=== PATIENT | female | born 1950 | race Asian ===

== ENCOUNTER → 2019-05-13 10:02 | Outpatient (CLI) | payer MEDICARE, BC, OTHER, SELFPAY ==
--- NOTE | 2019-05-13 10:09 | DI.CT.S_ITS ---
PROCEDURE: CT LUMBAR SPINE WO CON INDICATIONS: Spinal stenosis, lumbar region TECHNIQUE: Noncontrast 3 mm thick sections acquired from the T12 level to the sacrum. Sagittal and coronal reformats were constructed. For radiation dose reduction, the following was used: automated exposure control. COMPARISON: None. FINDINGS: Image quality: Excellent. Bones: There is grade I L4 on L5 anterolisthesis. Spinal alignment is otherwise normal. No compression deformities. Intervertebral disc heights are preserved. No neuroforaminal narrowing of the lumbar spine. Anterolisthesis and facet and ligamentum flavum hypertrophy at L4-5 results in severe canal stenosis where the AP diameter of the canal measures approximately 7 mm. The canal is otherwise normal caliber. Soft tissues: No retroperitoneal masses or hematomas. Visualized aorta is normal in caliber. There are scattered atheromatous calcifications throughout the aorta and iliac arteries bilaterally. IMPRESSION: 1. Grade I L4 on L5 anterolisthesis, facet and ligamentum flavum hypertrophy, and severe canal stenosis. 2. No other canal stenosis of the lumbar spine. 3. No neuroforaminal stenosis of the lumbar spine. 4. Aortic atherosclerosis. Dictated by: Pascale Hansen M.D. on 05/13/2019 at 16:40 Approved by: Pascale Hansen M.D. on 05/13/2019 at 16:43
== END ==
PROVIDERS: Visit Provider Physical Medicine & Rehabilitation Pain Medicine
DX: M48.062 Spinal stenosis, lumbar region with neurogenic claudication (principal); M43.16 Spondylolisthesis, lumbar region; I70.0 Atherosclerosis of aorta
CPT/HCPCS: 72131

== ENCOUNTER → 2019-10-06 14:52 | Outpatient (CLI) | payer MEDICARE, BC, OTHER, SELFPAY ==
--- NOTE | 2019-10-06 14:57 | DI.CT.S_ITS ---
PROCEDURE: CT CERVICAL SPINE WO CON INDICATIONS: SPONDYLOLITHESIS,LUMBAR REGION TECHNIQUE: Noncontrast 3 mm thick sections acquired from the skull base to the T4 level. Sagittal and coronal reformats were then constructed. For radiation dose reduction, the following was used: automated exposure control, adjustment of mA and/or kV according to patient size. COMPARISON: [facility], CT, THORAX W&WO CONTRAST, 01/31/2016, 16:51. FINDINGS: Image quality: Excellent. Bones: No fractures or dislocations. Visualized superior ribs are intact. Focal degenerative change is seen at the C5-C6 level, with moderate to severe disc space narrowing seen on the left. Uncovertebral joint hypertrophy is seen at this level. Endplate irregularity and sclerosis can be seen. At least moderate disc osteophyte complex can be seen, which is eccentric to the left. There is moderate to severe left-sided and moderate right-sided neural foraminal narrowing seen. Moderate central canal narrowing is seen. Milder degenerative changes are seen elsewhere. Soft tissues: Prevertebral soft tissues are normal in thickness. No paravertebral hematomas. No apical pneumothoraces. IMPRESSION: Focal C5-C6 degenerative change is seen, with moderate to severe left-sided neural foraminal narrowing. Dictated by: Isauro Dumont M.D. on 10/06/2019 at 15:44 Approved by: Isauro Dumont M.D. on 10/06/2019 at 15:46
== END ==
PROVIDERS: Referring Provider Physical Medicine & Rehabilitation Pain Medicine; Visit Provider Physical Medicine & Rehabilitation Pain Medicine
DX: M43.16 Spondylolisthesis, lumbar region (principal); M47.812 Spondylosis without myelopathy or radiculopathy, cervical region
CPT/HCPCS: 72125

== ENCOUNTER → 2019-11-04 13:11 | Outpatient (CLI) | payer MEDICARE, BC, OTHER, SELFPAY ==
--- NOTE | 2019-11-04 13:20 | DI.CT.S_ITS ---
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 Sagittal and coronal reformats were constructed. For radiation dose reduction, the following was used: automated exposure control. COMPARISON: [facility], CT, CT LUMBAR SPINE WO CON, 05/13/2019, 10:05. FINDINGS: Image quality: Excellent. Bones: No suspicious lytic or blastic bony lesions. No acute vertebral body compression fractures. There is a stable T12 anterior wedge deformity. Grade 1 anterolisthesis is seen at the L4-L5 level. No associated pars defects are seen. Mild dextroconvex scoliotic curvature is seen. T12-L1: No significant abnormality is seen. L1-L2: Level within normal limits. L2-L3: The disc height is well-preserved. Mild generalized disc bulge is seen. Mild bilateral neural foraminal narrowing is seen. No central canal narrowing is seen. L3-L4: The disc height is well-preserved. Mild disc bulge is seen, which is eccentric to the left. There is moderate left-sided and mild right-sided neural foraminal narrowing seen. Mild central canal narrowing is seen. L4-L5: Moderate loss of disc height is seen. Moderate disc bulge is seen, which is eccentric to the left. Moderate to prominent facet hypertrophy is seen. There is moderate to severe bilateral neural foraminal narrowing seen, left worse than right. Moderate to severe central canal narrowing is seen, as on series 3 image 52. When comparison is made with the prior examination, these findings are similar. L5-S1: The disc height is well-preserved. Mild facet joint hypertrophy is seen. No significant neural foraminal or central canal narrowing can be seen. Soft tissues: No retroperitoneal masses or hematomas. Visualized aorta is normal in caliber. Atherosclerotic calcification is noted. There is a right-sided sacral stimulator present. IMPRESSION: Focal L4-L5 degenerative change, which is similar to the prior CT examination. Stable T12 anterior wedge deformity. Mild dextroconvex scoliotic curvature is seen. Incidental note is made of: Right-sided sacral stimulator Dictated by: Isauro Dumont M.D. on 11/04/2019 at 13:43 Approved by: Isauro Dumont M.D. on 11/04/2019 at 13:50
== END ==
PROVIDERS: PCP Family Medicine; Referring Provider Physical Medicine & Rehabilitation Pain Medicine; Visit Provider Physical Medicine & Rehabilitation Pain Medicine
DX: M47.816 Spondylosis without myelopathy or radiculopathy, lumbar region (principal); M41.86 Other forms of scoliosis, lumbar region; Z96.82 Presence of neurostimulator
CPT/HCPCS: 72131

== ENCOUNTER → 2024-12-05 07:47 | Outpatient (CLI) | payer MEDICARE, BC, OTHER, SELFPAY | PROVIDERS: PCP Physician Assistant; Referring Provider Physician Assistant; Visit Provider Internal Medicine | DX: J84.9 Interstitial pulmonary disease, unspecified (principal); R06.02 Shortness of breath; Z87.891 Personal history of nicotine dependence; R94.2 Abnormal results of pulmonary function studies | CPT/HCPCS: 94060; 94726; 94729 ==